=== PATIENT | male | born 1940 | race Caucasian/White ===

== ENCOUNTER 2018-12-30 11:44 | Emergency (ER) | payer OTHER ==
[2018-12-30 12:54] LABS: Absolute Lymphocytes (CBC) 1.1 K/uL (0.7-4.9); Absolute Monocytes 0.6 K/uL (0.1-1.3); Absolute Neutrophil 6.3 K/uL (1.8-8.0); Basophils % 0.5 % (0-1.3); Eosinophils % 1.6 % (0-4.4); Hematocrit 42.7 % (39.6-49.0); Lymphocytes % 13.5 % (15.3-44.8); MPV 8.7 fL (7.6-11.3); Monocytes % 7.8 % (3.3-12.3); RBC Red Blood Cell Count 4.72 M/uL (4.33-5.43)
[2018-12-30 12:55] LABS: Protime INR 1.22
[2018-12-30 13:20] LABS: Albumin 3.1 g/dL (3.4-5.0); Bilirubin Total 0.5 mg/dL (0.2-1.0); Potassium 3.6 mmol/L (3.5-5.1); Protein, Total 6.7 g/dL (6.4-8.2)
--- NOTE | 2018-12-30 14:04 | RAD REPORT ---
EXAM DESCRIPTION: RAD - Chest Single View - 12/30/2018 1:57 pm CLINICAL HISTORY: Hip fracture, preop examination COMPARISON: December 2016 TECHNIQUE: AP portable chest image was obtained 1342 hours . FINDINGS: No failure, infiltrate or acute mass lesions seen. Chronic fibrotic lung changes are prese nt. Costophrenic angle blunting is present and stable. Heart and vasculature are normal. No measurabl e pleural effusion and no pneumothorax. No acute bony abnormality seen. No acute aortic findings susp ected. IMPRESSION: Fibrotic an obstructive lung changes not substantially different from comparison. No acute findings seen.
--- NOTE | 2018-12-30 14:10 | RAD REPORT ---
EXAM DESCRIPTION: RAD - Hip Right 2 View - 12/30/2018 1:57 pm CLINICAL HISTORY: Hip fracture diagnosed on outside examination common no images or report from that examination. COMPARISON: None. FINDINGS: AP and cross-table lateral views were obtained. No gross fracture deformity is identifiabl e from these two views. It is possible to have a small subcapital fracture that would be occult. No i ntertrochanteric abnormality. No distraction or angulation abnormality. Patient has significant right hip joint degenerative change. A few small subcortical degenerative cystic changes are seen in the r ight femoral head. No convincing evidence for AVN. No pathologic bone process seen. Dense arterial tree calcifications are present. No significant soft tissue finding. IMPRESSION: No definitive fractures seen on these two views. A small subcapital neck fracture could be present an occult. History indicates fracture diagnosis on outside examination. No report or imaging available from that study. Hip joint degenerative changes are present. Thin section CT imaging through the hip joint or MR imaging of the hip joint could be performed given the discrepancy between these findings in the outside imaging study.
--- NOTE | 2018-12-30 14:13 | RAD REPORT ---
EXAM DESCRIPTION: RAD - Pelvis - 12/30/2018 1:57 pm CLINICAL HISTORY: Fall, right hip pain, history of right hip fracture diagnosis on outside imaging s tudy COMPARISON: No remote comparison. Outside imaging study and report are not available. TECHNIQUE: AP imaging of the pelvis was obtained. FINDINGS: No fracture of the bony pelvis identifiable. Patient has prominent lower lumbar degenerati ve changes that are only partially imaged. Surgical hardware is in place from prior left femur fractu re repair. No definitive right femur fracture. It is possible for a small subcapital fracture to be present an o ccult on plain film. Patient has significant right hip joint degenerative change. No intertrochanteri c abnormality and no evidence for a pathologic process. IMPRESSION: No definitive fractures seen though small subcapital fractures can be occult. No acute finding of the pelvis or left hip. As clinical findings warrant, thin section CT imaging through the hip joint or MR imaging of the hip joint may be helpful given the discrepancy between these findings and the outside report of fracture.
--- NOTE | 2018-12-30 15:18 | RAD REPORT ---
EXAM DESCRIPTION: CT - Hip Right Wo Con - 12/30/2018 3:04 pm CLINICAL HISTORY: Right hip pain, history of right hip fracture on outside imaging. No report or edda ges from the outside study available for correlation. In [place] plain films did not demonstrate fract ure. COMPARISON: Hip and pelvis films this facility same date TECHNIQUE: Axial 2 millimeter thick images were obtained through the right hip joint. Sagittal and c oronal reconstruction images were generated and reviewed. The CT scan was performed using dose optimization techniques as appropriate to a performed exam incl uding one or more of the following: Automated exposure control, adjustment of the mA and/or kV accord ing to patient size (this includes techniques or standardized protocols for targeted exams where dose is matched to indication/reason for exam) and use of iterative reconstruction technique. FINDINGS: Imaged portions of the right hemipelvis show no fracture. No pathologic process in the rig ht hemipelvis. Patient has significant right hip joint degenerative change. Marginal spurring changes are present. There is sclerotic and joint space narrowing changes posterior along with subcortical d egenerative cystic changes. Numerous subcortical degenerative cysts are present in the femoral head. There is minimal buckling change of the femoral head cortex near the fovea. No AVN of the femoral hea d confirmed. No femoral neck fracture is identified as a correlate to the outside report. The trabecular stranding that extends from the femoral head cords the lesser trochanter shows no disruption. No intertrochant kailey fracture. No periarticular mass or hematoma. IMPRESSION: No right femur fracture is identifiable. Patient has prominent degenerative change at th e hip joint as detailed. No fracture of the imaged portion right hemipelvis.
--- NOTE | 2018-12-30 15:40 | ER ---
Nurse's Notes [facility] Name: Julián Moreno Age: 78 yrs Sex: Male : 1940 Arrival Date: 12/30/2018 Time: 11:48 Bed 14 Private MD: Diagnosis: Pain in right hip Presentation: 12/30 11:48 Presenting complaint: EMS states: pt has a confirmed right hip fx, pt tripped and fell em 2.5 weeks ago, had an x-ray done yesterday from Dr. Alvarez office, diagnosis is acute femoral neck fracture, pt rates pain 09/29. Transition of care: patient was not received from another setting of care. Onset of symptoms was December 12, 2018. Risk Assessment: Do you want to hurt yourself or someone else? Patient reports no desire to harm self or others. Initial Sepsis Screen: Does the patient meet any 2 criteria? No. Patient's initial sepsis screen is negative. Does the patient have a suspected source of infection? No. Patient's initial sepsis screen is negative. Care prior to arrival: None. 11:48 Method Of Arrival: EMS: [facility] em 12:04 Acuity: ALICIA 3 ph Historical: - Allergies: 12:05 PENICILLINS; em - Home Meds: 12:05 metformin 500 mg Oral tr24 [Active]; Flomax 0.4 mg Oral cp24 [Active]; Tricor 145 mg em Oral tab [Active]; Avodart 0.5 mg oral cap [Active]; furosemide 40 mg Oral tab 1 tab once daily [Active]; Vytorin 10-20 10-20 mg oral tab [Active]; Topamax 100 mg Oral tab [Active]; Inderal LA 60 mg Oral Cs24 [Active]; Sinemet 25-100 mg Oral tab [Active]; Pradaxa 150 mg oral cap [Active]; Proscar 5 mg Oral tab [Active]; Proscar 5 mg Oral tab [Active]; propranolol 60 mg Oral Cs24 [Active]; clonazepam 0.5 mg Oral tab [Active]; Cipro 500 mg Oral tab [Active]; Levaquin 750 mg Oral tab [Active]; Keflex 500 mg Oral cap [Active]; - PMHx: 12:05 Atrial Fib; CHF; Diabetes - NIDDM; High Cholesterol; Hypertension; em - PSHx: 12:05 right hip repair; Appendectomy; em - Immunization history:: Adult Immunizations unknown. - Social history:: Smoking status: Patient/guardian denies using tobacco. - Ebola Screening: : No symptoms or risks identified at this time. Screenin:42 Abuse screen: Denies threats or abuse. Denies injuries from another. Nutritional ph screening: No deficits noted. Tuberculosis screening: No symptoms or risk factors identified. Fall Risk Fall in past 12 months (25 points). No secondary diagnosis (0 pts). IV access (20 points). Ambulatory Aid- Crutches/Cane/Walker (15 pts). Gait- Normal/Bed Rest/Wheelchair (0 pts) Mental Status- Oriented to own ability (0 pts). Total Mejia Fall Scale indicates High Risk Score (45 or more points). Fall prevention measures have been instituted. Side Rails Up X 2 Frequent Obs/Assessments Occuring Family Present and informed to notify staff if the need to leave the bedside As available patient and family educated on Fall Prevention Program and Strategies. Assessment: 12:30 General: Appears in no apparent distress. comfortable, well groomed, Behavior is calm, ph cooperative, appropriate for age. Pain: Complains of pain in right hip. Neuro: Level of Consciousness is awake, alert, obeys commands, Oriented to person, place, time, situation. Cardiovascular: Capillary refill < 3 seconds in bilateral fingers Patient's skin is warm and dry. Respiratory: Airway is patent Respiratory effort is even, unlabored, Respiratory pattern is regular, symmetrical. Derm: Skin is intact, Skin is pink, warm \T\ dry. Musculoskeletal: Circulation, motion, and sensation intact. R leg noted to be shortened. 13:30 Reassessment: Patient appears in no apparent distress at this time. Patient and/or ph family updated on plan of care and expected duration. Pain level reassessed. Patient is alert, oriented x 3, equal unlabored respirations, skin warm/dry/pink. 14:41 Reassessment: Patient appears in no apparent distress at this time. Patient and/or ph family updated on plan of care and expected duration. Pain level reassessed. Patient is alert, oriented x 3, equal unlabored respirations, skin warm/dry/pink. ERP at bedside to speak w/ pt. 15:18 Reassessment: Patient appears in no apparent distress at this time. Patient and/or ph family updated on plan of care and expected duration. Pain level reassessed. Patient is alert, oriented x 3, equal unlabored respirations, skin warm/dry/pink. Pt cleaned of urinary incontinence, clean brief in place, awaiting CT results, at bedside. Vital Signs: 12:03 BP 119 / 81; Pulse 79; Resp 18; Pulse Ox 97% on R/A; ph 13:30 BP 107 / 68; Pulse 80; Resp 16; Pulse Ox 97% on R/A; ph 14:40 BP 108 / 64; Pulse 72; Resp 18; Pulse Ox 98% on R/A; ph 16:10 BP 112 / 68; Pulse 76; Resp 18; Temp 98.0; Pulse Ox 97% on R/A; ph ED Course: 11:48 Patient arrived in ED. em 11:58 Renato Magaña, PULMONOLOGY TECHNICIAN is PHCP. pm1 11:58 Bryce Hidalgo MD is Attending Physician. pm1 12:02 Zulma Ragsdale RN is Primary Nurse. ph 12:03 Arm band placed on. em 12:04 Triage completed. ph 12:45 Inserted saline lock: 20 gauge in right hand, using aseptic technique. ph 13:21 EKG done, by mathematics technician. reviewed by Renato Magaña NP. dt2 13:58 Hip Right 2 View XRAY In Process Unspecified. EDMS 13:58 Chest Single View XRAY In Process Unspecified. EDMS 13:58 Pelvis In Process Unspecified. EDMS 14:43 Patient has correct armband on for positive identification. Bed in low position. Call ph light in reach. Side rails up X2. slab lifting engineer on. Pulse ox on. NIBP on. Door closed. Noise minimized. Warm blanket given. Pillow given. 15:04 Hip Right Wo Con In Process Unspecified. EDMS 15:06 CT completed. Patient tolerated procedure well. Patient moved to DE via stretcher. sw Patient moved back from DE. 16:08 No provider procedures requiring assistance completed. ph 16:09 IV discontinued, intact, bleeding controlled, No redness/swelling at site. Pressure ph dressing applied. Administered Medications: No medications were administered Outcome: 15:38 Discharge ordered by . pm1 16:09 Discharged to home via wheelchair, with significant other. ph 16:09 Condition: good 16:09 Discharge instructions given to patient, significant other, Instructed on discharge instructions, follow up and referral plans. medication usage, Demonstrated understanding of instructions, follow-up care, medications, Prescriptions given X 1. 16:10 Patient left the ED. ph Signatures: Dispatcher [employer] [facility], LEARNING OFFICER LEARNING OFFICER Zulma Belcher RN RN Cinda Kirk Patrick, NP PULMONOLOGY TECHNICIAN pm1 Nargis Salazar dt2
--- NOTE | 2018-12-30 15:40 | EDPHYS ---
Physician Documentation [facility] Name: Julián Moreno Age: 78 yrs Sex: Male : 1940 Arrival Date: 12/30/2018 Time: 11:48 Bed 14 Private MD: ED Physician Bryce Hidalgo HPI: 12/30 13:05 This 78 yrs old Male presents to ER via EMS with complaints of Right Hip Pain.pm1 13:05 The patient or guardian reports pain. that occurred at home, sustained from a fall, pm1 from a standing position, There is no obvious deformity, The patient is able to self ambulate. 13:05 The complaints affect the right hip. Onset: The symptoms/episode began/occurred 2 pm1 week(s) ago. Modifying factors: The symptoms are alleviated by remaining still, the symptoms are aggravated by weight bearing. Associated signs and symptoms: Pertinent negatives: chest pain, dysuria, fever, shortness of breath. Severity of symptoms: in the emergency department the symptoms have resolved, a " 0" out of "10". The patient has not experienced similar symptoms in the past. The patient has not recently seen a physician. Patient with a fall about 2 weeks ago. Patient has been able to walk with a walker since the fall injury. He was going outside on the porch to smoke and he fell. No head injury, headache, neck pain, or LOC. He has had physical therapy sessions with his legs since the fall injury. He had a company come to his house to perform an X-ray of his right hip and he was instructed to come to the ER due to a right hip fracture. Historical: - Allergies: 12:05 PENICILLINS; em - Home Meds: 12:05 metformin 500 mg Oral tr24 [Active]; Flomax 0.4 mg Oral cp24 [Active]; Tricor 145 mg em Oral tab [Active]; Avodart 0.5 mg oral cap [Active]; furosemide 40 mg Oral tab 1 tab once daily [Active]; Vytorin 10-20 10-20 mg oral tab [Active]; Topamax 100 mg Oral tab [Active]; Inderal LA 60 mg Oral Cs24 [Active]; Sinemet 25-100 mg Oral tab [Active]; Pradaxa 150 mg oral cap [Active]; Proscar 5 mg Oral tab [Active]; Proscar 5 mg Oral tab [Active]; propranolol 60 mg Oral Cs24 [Active]; clonazepam 0.5 mg Oral tab [Active]; Cipro 500 mg Oral tab [Active]; Levaquin 750 mg Oral tab [Active]; Keflex 500 mg Oral cap [Active]; - PMHx: 12:05 Atrial Fib; CHF; Diabetes - NIDDM; High Cholesterol; Hypertension; em - PSHx: 12:05 right hip repair; Appendectomy; em - Immunization history:: Adult Immunizations unknown. - Social history:: Smoking status: Patient/guardian denies using tobacco. - Ebola Screening: : No symptoms or risks identified at this time. ROS: 13:05 Constitutional: Negative for fever, chills, and weight loss, Eyes: Negative for injury, pm1 pain, redness, and discharge, ENT: Negative for injury, pain, and discharge, Neck: Negative for injury, pain, and swelling, Cardiovascular: Negative for chest pain, palpitations, and edema, Respiratory: Negative for shortness of breath, cough, wheezing, and pleuritic chest pain, Abdomen/GI: Negative for abdominal pain, nausea, vomiting, diarrhea, and constipation, Back: Negative for injury and pain, : Negative for injury, bleeding, discharge, and swelling. 13:05 Skin: Negative for injury, rash, and discoloration, Neuro: Negative for headache, weakness, numbness, tingling, and seizure. 13:05 MS/extremity: Positive for pain, of the right hip, with movement. Currently pain free, Negative for deformity. Exam: 13:05 Constitutional: This is a well developed, well nourished patient who is awake, alert, pm1 and in no acute distress. Head/Face: Normocephalic, atraumatic. Eyes: Pupils equal round and reactive to light, extra-ocular motions intact. Lids and lashes normal. Conjunctiva and sclera are non-icteric and not injected. Cornea within normal limits. Periorbital areas with no swelling, redness, or edema. ENT: Nares patent. No nasal discharge, no septal abnormalities noted. Tympanic membranes are normal and external auditory canals are clear. Oropharynx with no redness, swelling, or masses, exudates, or evidence of obstruction, uvula midline. Mucous membranes moist. Neck: Trachea midline, no thyromegaly or masses palpated, and no cervical lymphadenopathy. Supple, full range of motion without nuchal rigidity, or vertebral point tenderness. No Meningismus. Chest/axilla: Normal chest wall appearance and motion. Nontender with no deformity. No lesions are appreciated. Cardiovascular: Regular rate and rhythm with a normal S1 and S2. No gallops, murmurs, or rubs. Normal PMI, no JVD. No pulse deficits. Respiratory: Lungs have equal breath sounds bilaterally, clear to auscultation and percussion. No rales, rhonchi or wheezes noted. No increased work of breathing, no retractions or nasal flaring. Abdomen/GI: Soft, non-tender, with normal bowel sounds. No distension or tympany. No guarding or rebound. No evidence of tenderness throughout. Back: No spinal tenderness. No costovertebral tenderness. Full range of motion. Skin: Warm, dry with normal turgor. Normal color with no rashes, no lesions, and no evidence of cellulitis. MS/ Extremity: Pulses equal, no cyanosis. Neurovascular intact. Full, normal range of motion. 13:05 Neuro: Orientation: is normal, Motor: is normal, moves all fours. Vital Signs: 12:03 BP 119 / 81; Pulse 79; Resp 18; Pulse Ox 97% on R/A; ph 13:30 BP 107 / 68; Pulse 80; Resp 16; Pulse Ox 97% on R/A; ph 14:40 BP 108 / 64; Pulse 72; Resp 18; Pulse Ox 98% on R/A; ph 16:10 BP 112 / 68; Pulse 76; Resp 18; Temp 98.0; Pulse Ox 97% on R/A; ph MDM: 12:01 Patient medically screened. pm1 15:37 Data reviewed: vital signs. Data interpreted: Pulse oximetry: on room air is 98 %. pm1 Interpretation: normal. Counseling: I had a detailed discussion with the patient and/or guardian regarding: the historical points, exam findings, and any diagnostic results supporting the discharge/admit diagnosis, lab results, radiology results, the need for outpatient follow up, to return to the emergency department if symptoms worsen or persist or if there are any questions or concerns that arise at home. 12/30 12:15 Order name: CBC with Diff; Complete Time: 13:20 pm1 12/30 12:15 Order name: CMP; Complete Time: 14:36 pm1 12/30 12:15 Order name: Hip Right 2 View XRAY; Complete Time: 14:36 pm1 12/30 12:15 Order name: PT-INR; Complete Time: 13:20 pm1 12/30 12:15 Order name: Chest Single View XRAY; Complete Time: 14:36 pm1 12/30 13:44 Order name: Pelvis; Complete Time: 14:36 EDMS 12/30 12:15 Order name: IV Saline Lock; Complete Time: 14:39 pm1 12/30 12:15 Order name: EKG; Complete Time: 12:20 pm1 12/30 12:15 Order name: EKG - Nurse/Tech; Complete Time: 14:39 pm1 12/30 14:46 Order name: Hip Right Wo Con; Complete Time: 15:21 EDMS Administered Medications: No medications were administered Disposition: 12/30/18 15:38 Discharged to Home. Impression: Pain in right hip. - Condition is Stable. - Discharge Instructions: Joint Pain, Arthritis, Musculoskeletal Pain, Hip Pain. - Prescriptions for Tylenol- Codeine #3 300-30 mg Oral Tablet - take 2 tablets by ORAL route every 6 hours As needed; 20 tablet. - Medication Reconciliation Form, Thank You Letter, Antibiotic Education, Prescription Opioid Use form. - Follow up: Emergency Department; When: As needed; Reason: Worsening of condition. Follow up: Private Physician; When: 2 - 3 days; Reason: Recheck today's complaints, Continuance of care, Re-evaluation by your physician. - Problem is new. - Symptoms have improved. Addendum: 01/02/2019 08:39 Co-signature as Attending Physician, Bryce Hidalgo MD I agree with the assessment and k dr plan of care. Signatures: Dispatcher [employer] [facility] Bryce Hidalgo MD MD kdr Munoz, Edgar, STRIPING MACHINE OPERATOR STRIPING MACHINE OPERATOR Zulma Belcher RN RN ph Renato Magaña, CONTROL ROOM AGENT CONTROL ROOM AGENT pm1 Corrections: (The following items were deleted from the chart) 12/30 16:10 15:38 12/30/2018 15:38 Discharged to Home. Impression: Pain in right hip. Condition is ph Stable. Forms are Medication Reconciliation Form, Thank You Letter, Antibiotic Education, Prescription Opioid Use. Follow up: Emergency Department; When: As needed; Reason: Worsening of condition. Follow up: Private Physician; When: 2 - 3 days; Reason: Recheck today's complaints, Continuance of care, Re-evaluation by your physician. Problem is new. Symptoms have improved. pm1
[2018-12-30 16:22] VITALS: O2SAT 97
[2018-12-30 16:28] VITALS: BP 112/68; TEMP 98
--- NOTE | 2018-12-31 09:46 | EKG ---
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
== END 2018-12-30 16:10 | disposition home or self-care (01) ==
LOC: ER 11:44
DX: M25.551 Pain in right hip (principal); I10 Essential (primary) hypertension; E78.00 Pure hypercholesterolemia, unspecified; E11.9 Type 2 diabetes mellitus without complications; I50.9 Heart failure, unspecified; I48.91 Unspecified atrial fibrillation; Z88.0 Allergy status to penicillin
CPT/HCPCS: 36415; 71045; 72170; 73700; 80053; 85025; 85610; 93005; 99285

== ENCOUNTER 2019-11-17 20:28 | Emergency (ER) | payer OTHER ==
[~2019-11-17 20:28] MED LIST: EPINEPHrine 1 MG/10 ML SYR ONE
--- NOTE | 2019-11-17 21:13 | ER ---
Nurse's Notes [facility] Name: Julián Moreno Age: 79 yrs Sex: Male : 1940 Arrival Date: 11/17/2019 Time: 20:31 Bed 3 Private MD: Diagnosis: Respiratory arrest;Cardiac arrest Presentation: 11/17 20:25 Chief complaint: EMS states: called for patient, stated patient was coughing and lp1 then became unresponsive; On arrival of EMS, patient had no pulse, unresponsive, CPR initiated at 1957; Patient reported to be bed bound; 3 rounds of Epinephrine administered without any shockable rhythm. 20:25 Care prior to arrival: Oral intubation, CPR via thumper performed by EMS and is still lp1 in progress IO to left tib fib. Compressions began at 19:57. 20:25 Method Of Arrival: EMS: [facility] lp1 20:25 Acuity: ALICIA 1 lp1 21:30 Coronavirus screen: The patient has NOT traveled to [place] in the past 14 days. The lp1 patient has NOT had contact with known and/or suspected case of Coronavirus. Ebola Screen: No symptoms or risks identified at this time. Initial Sepsis Screen: Does the patient meet any 2 criteria?. 21:30 Initial Sepsis Screen: Does the patient have a suspected source of infection? No. lp1 Patient's initial sepsis screen is negative. 21:30 Risk Assessment: Do you want to hurt yourself or someone else? Unable to obtain. Note lp1 Patient's states she was feeding the patient dinner when he began to states that he could not breathe and became unresponsive. Historical: - Allergies: 21:02 PENICILLINS; lp1 - Home Meds: 21:02 Avodart 0.5 mg Oral cap [Active]; Cipro 500 mg Oral tab [Active]; clonazepam 0.5 mg lp1 Oral tab 1 tab 2 times per day [Active]; clonazepam 0.5 mg Oral tab [Active]; finasteride 5 mg Oral tab 1 tab once daily [Active]; Flomax 0.4 mg Oral cp24 1 cap once daily [Active]; Flomax 0.4 mg Oral cp24 [Active]; furosemide 40 mg Oral tab 1 tab once daily [Active]; Inderal LA 60 mg Oral Cs24 [Active]; Keflex 500 mg Oral cap [Active]; Levaquin 750 mg Oral tab [Active]; metformin 1,000 mg Oral TbER 2 tabs once daily [Active]; metformin 500 mg Oral TbER [Active]; Pradaxa 150 mg Oral cap 1 cap 2 times per day [Active]; Pradaxa 150 mg Oral cap [Active]; propranolol 60 mg Oral Cs24 [Active]; Proscar 5 mg Oral tab [Active]; Proscar 5 mg Oral tab [Active]; Sinemet 25-100 mg Oral tab 1 tab BID [Active]; Sinemet 25-100 mg Oral tab [Active]; Topamax 100 mg Oral tab 1 tab 2 times per day [Active]; Topamax 100 mg Oral tab [Active]; Tricor 145 mg Oral tab 1 tab once daily [Active]; Tricor 145 mg Oral tab [Active]; Vytorin 10-20 10-20 mg Oral tab 1 tab once daily [Active]; Vytorin 10-20 10-20 mg Oral tab [Active]; - PMHx: 21:02 Atrial Fib; CHF; Diabetes - NIDDM; High Cholesterol; Hypertension; lp1 - PSHx: 21:02 Appendectomy; R hip surgery; lp1 - Immunization history:: Adult Immunizations unknown. - Social history:: Smoking status: Patient reports the use of cigarette tobacco products, unknown amount. Assessment: 20:25 CPR assessment: unresponsive, pupils fixed \T\ dilated, no respiratory effort, intubated, lp1 Ambu ventilation, cyanotic, pale, pulses present w/ compressions. 20:25 Cardiac rhythm is asystole. lp1 20:26 Reassessment: Dr. Matthew at bedside to assess ET tube placement. lp1 20:27 Cardiac rhythm is asystole. lp1 20:30 General: Appears slender, cachectic. General: Behavior is unresponsive. lp1 20:30 Neuro: Level of Consciousness is unresponsive, Pupils are fixed. Cardiovascular: lp1 Capillary refill is sluggish in bilateral fingers toes. Respiratory: Airway via oral intubation Trachea midline ventilating by ambu bag. GI: Abdomen is non-distended. Derm: Skin is fragile, is thin, Skin is dry, Skin is pale, Skin temperature is cool abrasions noted to bilateral lower legs, healing stages. Musculoskeletal: Capillary refill is sluggish, in bilateral fingers. toes. 20:31 Cardiac rhythm is asystole. lp1 20:33 Cardiac rhythm is asystole. lp1 20:35 Reassessment: Steven wilde at bedside; speaking with patient's . lp1 21:15 Reassessment: Family notified of waiting for aerodynamics teacher prior to visiting with patient; lp1 Family demonstrates understanding, in fast track room. 21:18 Reassessment: [facility] called at this time. lp1 21:40 Reassessment: Feed Miller at bedside with Steven Wilde. lp1 22:40 Reassessment: [facility] at bedside. lp1 Vital Signs: 20:25 lp1 21:21 Weight 79.38 kg; Height 6 ft. 4 in. (193.04 cm); lp1 21:21 Body Mass Index 21.30 (79.38 kg, 193.04 cm) lp1 20:25 Using BVM for respirations, compressions in progress lp1 ED Course: 20:25 Arm band placed on left wrist. lp1 20:25 Patient has correct armband on for positive identification. 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 Pulse lp1 ox on. NIBP on. 20:30 Inserted saline lock: 20 gauge in left wrist, using aseptic technique. By Joanie 1 JERMAN Hassan. 20:31 Patient arrived in ED. bb 20:41 Bennie Matthew MD is Attending Physician. tw4 20:45 Riana Alarcon, JERMAN is Primary Nurse. lp1 20:58 Triage completed. lp1 21:12 Bennie Matthew MD is Pronouncing Provider. tw4 Administered Medications: 20:28 Drug: EPINEPHrine 0.1mg/mL 1:10,000 1 mg {Note: IO to left tib/fib.} Route: IVP; Site: [facility] Other; 20:33 Follow up: Response: No change in condition lp1 20:30 Drug: EPINEPHrine 0.1mg/mL 1:10,000 1 mg {Note: IO to left tib/fib.} Route: IVP; Site: [facility] Other; 20:33 Follow up: Response: No change in condition lp1 20:31 Drug: Sodium Bicarbonate 1 amp {Note: IO to Left tib/fib.} Route: IVP; Site: Other; lp1 20:33 Follow up: Response: No change in condition lp1 Outcome: 20:33 Outcome Patient lp1 21:30 Patient : Time of 20:33 Pronounced by Bennie Matthew MD lp 22:45 Patient left the ED. lp1 Signatures: Joanie Hassan, RN RN Riana Elena, RN RN lp1 Bennie Matthew, MD DELEON tw4 Corrections: (The following items were deleted from the chart) :46 21:39 General: Appears slender, cachectic, lp1 lp1 :46 21:39 General: Behavior is unresponsive. lp1 lp1 :46 21:39 General: Appears slender, cachectic, lp1 lp1 :46 21:39 General: Behavior is unresponsive. lp1 lp1 :46 21:39 Neuro: Level of Consciousness is unresponsive, Pupils are fixed, lp1 lp1 :46 21:39 Cardiovascular: Capillary refill is sluggish in bilateral fingers toes lp1 lp1 :46 21:39 Respiratory: Airway via oral intubation Trachea midline ventilating by ambu bag lp1 lp1 :46 21:39 GI: Abdomen is non-distended, lp1 lp1 :46 21:39 Derm: Skin is fragile, is thin, Skin is dry, Skin is pale, Skin temperature is lp1 cool abrasions noted to bilateral lower legs, healing stages lp1 :46 21:39 Musculoskeletal: Capillary refill is sluggish, in bilateral fingers. toes. lp1 lp1 22:04 21:21 79.38 kg; Height 6 ft.; BMI: 23.7; lp1 lp1
--- NOTE | 2019-11-18 22:47 | EDPHYS ---
Physician Documentation [facility] Name: Julián Moreno Age: 79 yrs Sex: Male : 1940 Arrival Date: 11/17/2019 Time: 20:31 Bed 3 Private MD: ED Physician Bennie Matthew HPI: 06:48 This 79 yrs old Male presents to ER via EMS with complaints of CPR. tw4 06:48 Preceding the arrest, the patient was dyspneic. The arrest occurred at home. tw4 Pre-hospital course: The arrest was witnessed EMS care prior to arrival: initiation of ACLS, peripheral IV, Time elapsed prior to ACLS is unknown. ACLS has been in progress for 30 minutes. ACLS details: Initial rhythm was asystole. The presenting rhythm is V-tach. Airway: LMA, Medications given by EMS prior to arrival - Epinephrine IV x 3 doses, Response to therapy: continued arrest. The patient has not experienced similar symptoms in the past. Historical: - Allergies: 11/17 21:02 PENICILLINS; lp1 - Home Meds: 21:02 Avodart 0.5 mg Oral cap [Active]; Cipro 500 mg Oral tab [Active]; clonazepam 0.5 mg lp1 Oral tab 1 tab 2 times per day [Active]; clonazepam 0.5 mg Oral tab [Active]; finasteride 5 mg Oral tab 1 tab once daily [Active]; Flomax 0.4 mg Oral cp24 1 cap once daily [Active]; Flomax 0.4 mg Oral cp24 [Active]; furosemide 40 mg Oral tab 1 tab once daily [Active]; Inderal LA 60 mg Oral Cs24 [Active]; Keflex 500 mg Oral cap [Active]; Levaquin 750 mg Oral tab [Active]; metformin 1,000 mg Oral TbER 2 tabs once daily [Active]; metformin 500 mg Oral TbER [Active]; Pradaxa 150 mg Oral cap 1 cap 2 times per day [Active]; Pradaxa 150 mg Oral cap [Active]; propranolol 60 mg Oral Cs24 [Active]; Proscar 5 mg Oral tab [Active]; Proscar 5 mg Oral tab [Active]; Sinemet 25-100 mg Oral tab 1 tab BID [Active]; Sinemet 25-100 mg Oral tab [Active]; Topamax 100 mg Oral tab 1 tab 2 times per day [Active]; Topamax 100 mg Oral tab [Active]; Tricor 145 mg Oral tab 1 tab once daily [Active]; Tricor 145 mg Oral tab [Active]; Vytorin 10-20 10-20 mg Oral tab 1 tab once daily [Active]; Vytorin 10-20 10-20 mg Oral tab [Active]; - PMHx: 21:02 Atrial Fib; CHF; Diabetes - NIDDM; High Cholesterol; Hypertension; lp1 - PSHx: 21:02 Appendectomy; R hip surgery; lp1 - Immunization history:: Adult Immunizations unknown. - Social history:: Smoking status: Patient reports the use of cigarette tobacco products, unknown amount. ROS: 06:48 Unable to obtain ROS due to comatose state. tw4 Exam: 06:48 Constitutional: The patient appears comatose. tw4 06:48 Constitutional: The patient appears CPR by Sonu device in progress 06:48 ENT: copious secretions in oropharynx, patient has LMA in place,. 06:48 Cardiovascular: Pulses: not palpable. 06:48 Respiratory: LMA in place , rhonchi BS with mechanical ventilation. 06:48 Abdomen/GI: Inspection: distension, that is mild, scar(s), are noted in the suprapubic area. 06:48 Neuro: Orientation: unable to test, the patient is comatose. Vital Signs: 11/17 20:25 lp1 21:21 Weight 79.38 kg; Height 6 ft. 4 in. (193.04 cm); lp1 21:21 Body Mass Index 21.30 (79.38 kg, 193.04 cm) lp1 20:25 Using BVM for respirations, compressions in progress lp1 Procedures: 06:51 CPR: See CPR flow sheet. Initial patient assessment: unresponsive, agonal respirations, tw4 no respiratory effort, pupils pinpoint, intubated, Ambu ventilation, The presenting cardiac rhythm is asystole. the patient was intubated prior to arrival, Compressions: began prior to arrival. Meds given: Epinephrine X 2, despite ED evaluation and treatment, the patient . Family notified. PMD notified. CPR was stopped at 20:33. MDM: 11/17 20:41 Patient medically screened. tw4 02/29 06:51 Differential diagnosis: cardiac arrest, respiratory arrest. Data reviewed: EMS record. tw4 Counseling: I had a detailed discussion with the patient and/or guardian regarding: the historical points, exam findings, and any diagnostic results supporting the discharge/admit diagnosis. Administered Medications: 11/17 20:28 Drug: EPINEPHrine 0.1mg/mL 1:10,000 1 mg {Note: IO to left tib/fib.} Route: IVP; Site: [facility] Other; 20:33 Follow up: Response: No change in condition lp1 20:30 Drug: EPINEPHrine 0.1mg/mL 1:10,000 1 mg {Note: IO to left tib/fib.} Route: IVP; Site: [facility] Other; 20:33 Follow up: Response: No change in condition lp1 20:31 Drug: Sodium Bicarbonate 1 amp {Note: IO to Left tib/fib.} Route: IVP; Site: Other; [facility] 20:33 Follow up: Response: No change in condition [facility] Disposition: Patient pronounced on 11/17/19 20:33 by Bennie Matthew. Impression: Respiratory arrest, Cardiac arrest. - Released to Home. Signatures: Riana Alarcon RN RN 1 Bennie Matthew MD MD tw4 Corrections: (The following items were deleted from the chart) 22:45 21:12 11/17/2019 21:12 Patient pronounced on 11/17/2019 at 20:33 by Bennie Matthew. lp1 Impression: Respiratory arrest; Cardiac arrest. Released to Home. tw4
== END 2019-11-17 22:45 | disposition expired ==
LOC: ER 20:28
PROC: 5A12012 Performance of Cardiac Output, Single, Manual (ICD-10-PCS; principal; 2019-11-17)
DX: I46.9 Cardiac arrest, cause unspecified (principal); I10 Essential (primary) hypertension; E11.9 Type 2 diabetes mellitus without complications; I48.91 Unspecified atrial fibrillation; E78.00 Pure hypercholesterolemia, unspecified; Z72.0 Tobacco use
CPT/HCPCS: 96375; 96374; 92950; 99285; J0171